=== PATIENT | female | born 1990 | race Caucasian/White ===

== ENCOUNTER 2024-08-31 03:17 | Emergency (ER) | payer BC, SELFPAY ==
[2024-08-31 03:19] VITALS: BP 116/82
[2024-08-31 03:57] VITALS: BMI 25.3
--- NOTE | 2024-08-31 04:05 | ED.GENMED ---
History of Present Illness
General
Chief Complaint: Abdominal Pain
Source: patient
Exam Limitations: none
Time Seen by Provider: 08/31/24 03:46
Nursing documentation reviewed up to this point in time: agreed with
History of Present Illness
History of Present Illness:
Pleasant 33-year-old female presents with acute nausea vomiting and diarrhea that began this evening. She and her went out to dinner and both had similar meals. Patient denies any sick contacts. She has diffuse abdominal pain. Denies fever
or chills. She did vomit while getting into the room in the emergency department. She did not take any antiemetics at home. Denies any previous abdominal surgeries. Last menstrual period was within 2 weeks. Denies any chronic illness.
Phy Exam
General Physical Exam
General Presentation: well appearing and mild distress
General age: appears stated age
General Skin: warm and dry
General Habitus: normal
General Mental: alert
General Hydration: appears well hydrated
ENT Exam
ENT Exam: EOMI, pharynx normal, neck supple and normocephalic
Eye Exam
Eye Exam: PERRL, cornea clear and conjunctiva normal
Cardiovascular Exam
Cardiovascular Exam: regular rate/rhythm, no edema, no murmur and normal peripheral pulses
Pulmonary Exam
Pulmonary Exam: lungs clear, no respiratory distress, no rales, no crackles, no rhonchi, no stridor, no wheezing and no cough
Gastrointestinal Exam
Gastrointestinal Exam: normal bowel sounds, non tender, soft, no pulsatile mass, non distended and other (Right CVA tenderness)
Neurological Exam
Neurological Exam: alert, oriented x3, no motor deficits and speech normal
Musculoskeletal Exam
Musculoskeletal Exam: full ROM and no edema
Skin Exam
Skin Exam: normal color, warm/dry, no rash and no petechia
Psychiatric Exam
Psychiatric Exam: normal mood/affect
Course
Orders/Labs/Results
Orders:
Orders
08/31/24 03:30
Test Result ONCE
08/31/24 03:47
0.9% Sodium Chloride 1000 ml [Nss] 1,000 ml IV BOLUS
Ondansetron Injectable [Zofran] 4 mg IV NOW STA
08/31/24 04:01
Complete Blood Count/With Diff Urgent
Comprehensive Metabolic Panel Urgent
HCG, Serum Qualitative Screen Urgent
Lipase Urgent
Manual Differential Urgent
08/31/24 04:44
Morphine Sulfate 4 mg IV NOW STA
08/31/24 04:56
CT Abd/pelvis W Iv Cont Urgent
Comment:
Reason For Exam: upper abd pain
08/31/24 05:09
Ondansetron Injectable [Zofran] 4 mg IV NOW STA
08/31/24 05:56
Urinalysis Reflex To Culture Urgent
08/31/24 06:16
Metoclopramide [Reglan] 10 mg IV NOW STA
Abnormal Lab Results
08/31/24
04:01
WBC 14.0 H 10^3/uL
(4.8-10.8)
Abs Neuts (Manual) 12.1 H 10^3/uL
(1.4-6.5)
Band Neutrophils 13 H %
(0-3)
Lymphocytes (Manual) 5 L %
(20-51)
Chloride 108 H mmol/L
(98-107)
Carbon Dioxide 21 L mmol/L
(22-30)
Glucose 184 H mg/dl
(70-99)
08/31/24 04:01
08/31/24 04:01
Vital Signs
Initial and Last Documented VS:
Initial Vital Signs
Temp Pulse Resp BP Pulse Ox
98.2 F 90 18 116/82 98
08/31/24 03:19 08/31/24 03:19 08/31/24 03:19 08/31/24 03:19 08/31/24 03:19
Last Documented Vital Signs
Temp Pulse Resp BP Pulse Ox
98.2 F 93 16 122/82 99
08/31/24 03:19 08/31/24 05:10 08/31/24 05:10 08/31/24 05:10 08/31/24 05:10
*Critical Care Note
Total Time (30-74mins, 75-104mins- exclusive of procedures): Not Applicable
Update Note
Update Note:
CT ABDOMEN PELVIS WITH CONTRAST
COMPARISON: None
IMPRESSION:
There is fluid throughout the colon consistent with diarrhea. No colonic wall thickening to indicate colitis. Fluid and segmental wall thickening in the small bowel without dilation. Findings suggest enteritis or gastroenteritis.
Normal appendix.
No obstructive uropathy.
No concerning bone finding.
Case results were faxed/electronically transmitted at [id number] EST. If there are any questions please feel free to contact me directly at [phone], ext [phone]. If you cannot reach me at this number, do not leave a voicemail. Please call [phone]
ext [phone] and ask for the next available radiologist.
ED Attending Note
-
Portions of this chart may have been created with voice recognition software.� Occasional wrong word or��sound alike� substitutions may have occurred due to the inherent limitations of voice recognition software.
Discharge Plan
Departure
Patient Disposition: Home (Routine Discharge)
Date of Disposition: 08/31/24
Time of Disposition: 05:56
Patient with high blood pressure during this ER visit?: Yes
Condition: Fair
Discharge Problem:
Gastroenteritis
Instructions: Viral gastroenteritis in adults, Clear Liquid Diet, Abdominal Pain, BLOOD PRESSURE
Prescriptions:
New
ondansetron 4 mg tablet,disintegrating
4 mg PO Q8H PRN (Reason: nausea and vomiting) Qty: 14 0RF
Referrals:
Vinita Jack PA-C [Family Provider] -
Activity Restrictions/Additional Instructions:
Your prescriptions were transmitted to the pharmacy you requested
It was a pleasure meeting you and taking part in your care. We hope for your continued healing and wellness.
Please read discharge instructions in their entirety. However, they are for general education and may not describe your exact diagnosis at discharge. Information on your ER visit and medical conditions were discussed with you along with appropriate
follow up information...
If indicated, please take your medications as instructed and indicated on discharge paperwork.
Please schedule a follow up appointment as directed. Call to schedule an appointment
Please return to the emergency department with ANY change in, persisting, or worsening of symptoms. If any of your symptoms do not improve, or persist, or become more severe within 6-12 hours, please return to the emergency department for further
care.
Please return to the emergency department if you develop a headache, neck pain/stiffness, fever greater than 100.4F, chest pain, shortness of breath, persistent nausea, vomiting, slurred speech, difficulty walking, numbness/tingling, weakness, signs
of infection or any other symptoms that are worrisome to you.
If you have any questions or concerns please do not hesitate to call the Hospital at or E-mail me directly at [email or web address]
Interventions
Interventions:
*Risk Screen - Suicide Last Done: 08/31/24 03:19
*General Assessment Last Done: 08/31/24 03:57
*Neglect/Abuse Screening Last Done: 08/31/24 03:19
*ED- Fall Risk Assessment Last Done: 08/31/24 03:57
*ED COVID-19 Vaccine History Last Done: 08/31/24 03:57
BY-Lswsgw-Zsezafhgpk Assessment Last Done: 08/31/24 04:17
Discharge Date and Time
Print Language: [id number]
[2024-08-31] MEDS: ZOFRAN 4 MG IV ×2 (04:10→05:10)
[2024-08-31] MEDS: NSS 1000 IV (04:10)
[2024-08-31 04:25] LABS: HCG, Serum Qualitative Screen Negative
[2024-08-31 04:28] LABS: ALT (SGPT) 18 U/L (0-35); AST (SGOT) 22 U/L (14-36); Albumin 4.3 g/dl (3.5-5.0); Alkaline Phosphatase 81 U/L (38-126); Blood Urea Nitrogen 15 mg/dl (7-17); Calcium 9.2 mg/dl (8.4-10.2); Carbon Dioxide 21 mmol/L (22-30); Chloride 108 mmol/L (98-107); Estimated Creatinine Clearance 109 ml/min; Glucose 184 mg/dl (70-99); Lipase 95 U/L (23-300); Potassium 4.2 mmol/L (3.5-5.1); Sodium 141 mmol/L (135-145); Total Bilirubin 0.8 mg/dl (0.2-1.3); Total Protein 7.5 g/dl (6.3-8.2); eGFR > 60.00
[2024-08-31 04:34] LABS: Hematocrit 42.9 % (37.0-47.0); Hemoglobin 14.2 g/dL (12.0-16.0); Mean Corp Hgb Conc. 33.1 g/dL (33.0-37.0); Mean Corpuscular Hgb 29.5 pg (27.0-31.0); Mean Corpuscular Volume 89.2 fL (81.0-99.0); Mean Platelet Volume 9.9 fL (7.4-10.4); Platelet Count 293 10^3/uL (130-400); Red Blood Cell Count 4.81 10^6/uL (4.20-5.40); Red Cell Dist. Width 12.2 % (11.5-14.5)
[2024-08-31] MEDS: MORPHINE SULFATE 4 MG IV (05:00)
[2024-08-31 05:10] VITALS: BP 122/82
[2024-08-31 05:53] LABS: Absolute Neutrophils -Man Diff 12.1 10^3/uL (1.4-6.5); Band Neutrophils 13 % (0-3); Segmented Neutrophils 74 % (42-75)
[2024-08-31 05:54] LABS: Eosinophils 1 % (0-6); Hypersegmented Neutrophil 1+; Lymphocytes 5 % (20-51); Monocytes 7 % (2-9); Normal RBC Morphology Yes; Platelets Checked Yes; Toxic Granulation 1+; Vacuolated Segs Occasional
[2024-08-31 05:55] LABS: Total Cells Counted 100
[2024-08-31] MEDS: REGLAN 10 MG IV (06:36)
== END 2024-08-31 07:24 | disposition home or self-care (01) ==
LOC: EMR 03:17
PROVIDERS: EMERGENCY PHYSICIAN Student in an Organized Health Care Education/Training Program; FAMILY PHYSICIAN Physician Assistant Medical
DX: K52.9 Noninfective gastroenteritis and colitis, unspecified (principal)
CPT/HCPCS: 99284; 96374; 96375; 96376; 96361; 74177; 80053; 83690; 84703; 85025; Q9967